=== PATIENT | female | born 1995 | race African-American/Black ===

== ENCOUNTER 2017-02-08 15:44 | Emergency (ER) | payer OTHER ==
[~2017-02-08] VITALS: Ht 165.1 cm; Wt 45.7 kg
[~2017-02-08 15:44] MED LIST: BACTRIM,SEPT1 TABLET PO; CIPRO500 MG PO; TYLENOL EXTRA500 MG PO; VENTOLIN HFA18 GM IH
[2017-02-08 17:09] LABS: HEMATOCRIT 43.2 % (36.0-46.0); MCH 30.3 PG (29.0-34.0); MCV 86.6 FL (83-99); MEAN PLAT.VOLUME 10.2 uM^3 (9.5-12.4); PLATELET COUNT 249 K/uL (156-360); RBC DIS.WIDTH-CV 11.2 % (11.8-14.6); RBC DIS.WIDTH-SD 35.7 % (39-53); RED BLOOD COUNT 4.99 M/uL (3.80-5.20); WHITE BLOOD COUNT 8.4 K/uL (4.1-10.2)
[2017-02-08 17:29] LABS: CHLORIDE 106 mEq/L (99-109); POTASSIUM 3.5 mEq/L (3.7-5.4); SODIUM 140 mEq/L (136-147)
[2017-02-08 17:30] LABS: GLUCOSE 76 mg/dL (70-99)
[2017-02-08 17:32] LABS: ANION GAP 12 MEQ/L (2-14)
[2017-02-08 17:34] LABS: GFR ESTIMATE (CALCULATED) > 59 mL/min/
[2017-02-08 17:35] LABS: UREA NITROGEN (BUN) 8 mg/dL (9-23)
[2017-02-08 17:46] LABS: QUANTITATIVE HCG < 4.0 MIU/ML
[2017-02-08 18:04] LABS: ADD MIUA? YES; BILIRUBIN NEGATIVE; BLOOD NEGATIVE; COLOR YELLOW ((YELLOW)); GLUCOSE (STRIP) NEGATIVE; KETONES 5; LEUKOCYTES MODERATE; NITRITE NEGATIVE; PROTEIN (STRIP) NEGATIVE; SPECIFIC GRAVITY 1.013 (1.000-1.030); UROBILINOGEN 0.2 MG/DL (0.2-1.0)
[2017-02-08 18:13] LABS: BACTERIA RARE /HPF; EPITHELIAL CELLS RARE /HPF; MUCUS TRACE /LPF; RED BLOOD CELLS 0-5 /HPF (0-5); UCUL ADDED? NO; WHITE BLOOD CELLS 0-5 /HPF (0-5)
[2017-02-08] MEDS ORDERED: TORADOL10 MG PO (19:41)
[2017-02-08 20:08] VITALS: BP 121/89
== END 2017-02-08 20:09 | disposition home or self-care (01) ==
LOC: EME 15:44
DX: R10.9 Unspecified abdominal pain (principal); J45.909 Unspecified asthma, uncomplicated; F17.200 Nicotine dependence, unspecified, uncomplicated
CPT/HCPCS: 80048; 81003; 84702; 85027; 99281; 99284